=== PATIENT | male | born 1960 | race Caucasian/White ===

== ENCOUNTER 2018-12-02 08:40 | Emergency (ER) | payer BC ==
--- NOTE | 2018-12-02 09:31 | EDM.PDOC ---
ED HPI GENERAL MEDICAL PROBLEM - General Chief Complaint: Genitourinary Problem Stated Complaint: BACK SIDE PAIN Time Seen by Provider: 12/02/18 09:15 Source of Information: Reports: Patient History Limitations: Reports: No Limitations - History of Present Illness INITIAL COMMENTS - FREE TEXT/NARRATIVE: 58-year-old male presents with bilateral flank pain. He also feels he has decreased urinary output. It started last night after having [place] food, he had some upper abdominal tightness and discomfort which started at 3 AM. No nausea or vomiting. No dysuria. Over the next several hours the pain localized to his back bilaterally over the flank areas. No fever or chills. He is convinced that he has decreased urine output. Onset: Unknown/Unsure (Woke with pain at 3 AM) Location: Reports: Back (Bilateral flank pain) Quality: Reports: Ache Severity: Moderate Improves with: Reports: Other (Feels a little better when he is sitting up) Associated Symptoms: Denies: Confusion, Chest Pain, Cough, Diaphoresis, Fever/ Chills, Malaise, Nausea/Vomiting Bilateral Flank Pain Score (Numeric/FACES): 8 - Related Data Allergies Allergy/AdvReac Type Severity Reaction Status Date / Time No Known Allergies Allergy Verified 12/02/18 09:14 Home Meds: Home Meds Lisinopril 10 mg PO DAILY 12/02/18 [History] hydroCHLOROthiazide [Hydrochlorothiazide] 50 mg PO DAILY 12/02/18 [History] Past Medical History HEENT History: Reports: Impaired Vision Cardiovascular History: Reports: Hypertension Musculoskeletal History: Reports: Fracture - Past Surgical History GI Surgical History: Reports: Appendectomy Social & Family History - Caffeine Use Caffeine Use: Reports: Coffee, Energy Drinks, Soda - Recreational Drug Use Recreational Drug Use: No ED ROS GENERAL - Review of Systems Review Of Systems: See Below Constitutional: Denies: Fever, Chills HEENT: Reports: No Symptoms Respiratory: Denies: Shortness of Breath Cardiovascular: Denies: Chest Pain GI/Abdominal: Reports: Abdominal Pain. Denies: Nausea, Vomiting : Reports: Flank Pain (Bilateral), Other (Decreased output) Musculoskeletal: Reports: No Symptoms Skin: Reports: No Symptoms Neurological: Denies: Headache ED EXAM, GENERAL - Physical Exam Exam: See Below Exam Limited By: No Limitations General Appearance: Alert, No Apparent Distress Eye Exam: Bilateral Eye: Normal Inspection Head: Atraumatic Respiratory/Chest: No Respiratory Distress, Lungs Clear Cardiovascular: Regular Rate, Rhythm GI/Abdominal: Normal Bowel Sounds, Soft, Non-Tender Back Exam: No: CVA Tenderness (R), CVA Tenderness (L) Course - Vital Signs Last Recorded V/S: Last Vital Signs Temp 94.7 F L 12/02/18 09:15 Pulse 60 12/02/18 09:15 Resp 18 12/02/18 09:15 BP 151/56 H 12/02/18 09:15 Pulse Ox 96 12/02/18 09:15 - Orders/Labs/Meds Labs: Laboratory Tests 12/02/18 12/02/18 12/02/18 Range/Units 09:34 09:34 09:34 WBC 8.9 (4.5-11.0) K/uL RBC 4.80 (4.30-5.90) M/uL Hgb 14.8 (12.0-15.0) g/dL Hct 44.0 (40.0-54.0) % MCV 92 (80-98) fL MCH 31 (27-31) pg MCHC 34 (32-36) % Plt Count 235 (150-400) K/uL Neut % (Auto) 84 H (36-66) % Lymph % (Auto) 11 L (24-44) % [place] % (Auto) 4 (2-6) % Eos % (Auto) 0 L (2-4) % Baso % (Auto) 0 (0-1) % Sodium 140 (140-148) mmol/L Potassium 4.1 (3.6-5.2) mmol/L Chloride 105 (100-108) mmol/L Carbon Dioxide 28 (21-32) mmol/L Anion Gap 7.0 (5.0-14.0) mmol/L BUN 25 H (7-18) mg/dL Creatinine 1.1 (0.8-1.3) mg/dL Est Cr Clr Drug Dosing 77.42 mL/min Estimated GFR (MDRD) > 60 (>60) Glucose 125 H (74-106) mg/dL Calcium 9.3 (8.5-10.1) mg/dL Total Bilirubin 0.9 (0.2-1.0) mg/dL AST 19 (15-37) U/L ALT 26 (12-78) U/L Alkaline Phosphatase 66 (46-116) U/L Total Protein 7.3 (6.4-8.2) g/dL Albumin 3.3 L (3.4-5.0) g/dL Globulin 4.0 H (2.3-3.5) g/dL Albumin/Globulin Ratio 0.8 L (1.2-2.2) Lipase 47 L (73-393) U/L Urine Color Urine Appearance Urine pH (4.5-8.0) Ur Specific [place] (1.008-1.030) Urine Protein (NEGATIVE) mg/dL Urine Glucose (UA) (NEGATIVE) mg/dL Urine Ketones (NEGATIVE) mg/dL Urine Occult Blood (NEGATIVE) Urine Nitrite (NEGAITVE) Urine Bilirubin (NEGATIVE) Urine Urobilinogen (NORMAL) mg/dL Ur Leukocyte Esterase (NEGATIVE) Urine RBC (0-5) Urine WBC (0-5) Ur Epithelial Cells Amorphous Sediment Urine Bacteria Urine Mucus 12/02/18 Range/Units 10:24 WBC (4.5-11.0) K/uL RBC (4.30-5.90) M/uL Hgb (12.0-15.0) g/dL Hct (40.0-54.0) % MCV (80-98) fL MCH (27-31) pg MCHC (32-36) % Plt Count (150-400) K/uL Neut % (Auto) (36-66) % Lymph % (Auto) (24-44) % [place] % (Auto) (2-6) % Eos % (Auto) (2-4) % Baso % (Auto) (0-1) % Sodium (140-148) mmol/L Potassium (3.6-5.2) mmol/L Chloride (100-108) mmol/L Carbon Dioxide (21-32) mmol/L Anion Gap (5.0-14.0) mmol/L BUN (7-18) mg/dL Creatinine (0.8-1.3) mg/dL Est Cr Clr Drug Dosing mL/min Estimated GFR (MDRD) (>60) Glucose (74-106) mg/dL Calcium (8.5-10.1) mg/dL Total Bilirubin (0.2-1.0) mg/dL AST (15-37) U/L ALT (12-78) U/L Alkaline Phosphatase (46-116) U/L Total Protein (6.4-8.2) g/dL Albumin (3.4-5.0) g/dL Globulin (2.3-3.5) g/dL Albumin/Globulin Ratio (1.2-2.2) Lipase (73-393) U/L Urine Color Yellow Urine Appearance Cloudy Urine pH 5.0 (4.5-8.0) Ur Specific [place] 1.020 (1.008-1.030) Urine Protein Trace (NEGATIVE) mg/dL Urine Glucose (UA) Normal (NEGATIVE) mg/dL Urine Ketones 15 H (NEGATIVE) mg/dL Urine Occult Blood Trace (NEGATIVE) Urine Nitrite Negative (NEGAITVE) Urine Bilirubin Moderate (NEGATIVE) Urine Urobilinogen Normal (NORMAL) mg/dL Ur Leukocyte Esterase Negative (NEGATIVE) Urine RBC 0-5 (0-5) Urine WBC 0-5 (0-5) Ur Epithelial Cells Few Amorphous Sediment Rare Urine Bacteria Few Urine Mucus Few - Re-Assessments/Exams Free Text/Narrative Re-Assessment/Exam: 12/02/18 09:46 CBC, CMP, lipase and UA will be obtained as well as a CT of abdomen and pelvis without contrast. 12/02/18 10:41 CBC and CMP are normal including GFR and creatinine. Lipase was normal. UA was reassuring as well, CT showed significant cholelithiasis but no evidence of cholecystitis. Her reexamination of the patient reveals no abdominal pain or right upper quadrant tenderness. We discussed his symptoms, a possible relation to his gallbladder and the negative urology workup. He will treat symptomatically for the next several days and return if worsening such as fever or nausea and vomiting. If pain becomes a recurring issue, he can consider a cholecystectomy. Departure - Departure Time of Disposition: 10:55 Disposition: Home, Self-Care 01 Condition: Good Clinical Impression: Bilateral flank pain Cholelithiasis Qualifiers: Cholelithiasis location: gallbladder Cholecystitis presence: without cholecystitis Biliary obstruction: without biliary obstruction Qualified Code(s) : K80.20 - Calculus of gallbladder without cholecystitis without obstruction - Discharge Information Instructions: Cholelithiasis Referrals: Abelino Gill MD [Primary Care Provider] - Forms: ED Department Discharge Care Plan Goals: Ibuprofen or naproxen for the next several days for pain should be beneficial. Return anytime if worsening such as fever, increased pain or nausea and vomiting. Also consider rechecking in 2-3 days if not improving satisfactorily. If pain becomes recurrent especially related to eating, a surgical consult to discuss a possible cholecystectomy would be reasonable.
--- NOTE | 2018-12-02 10:13 | CRLCT ---
INDICATION: Bilateral flank pain TECHNIQUE: CT abdomen and pelvis without contrast. COMPARISON: None. FINDINGS: Lower chest: Unremarkable. Liver: Normal in size and attenuation. No masses. Gallbladder and bile ducts: Numerous small stones are in the gallbladder which is normal in caliber. No CT evidence of inflammation and no biliary dilatation. Pancreas: Unremarkable. No mass or inflammation. Spleen: Normal in size. No masses. Adrenal glands: Normal in size. No nodules. Kidneys: Normal in size. No masses, stones, or hydronephrosis. Few small cortical cysts are present. No perinephric edema. GI tract: Unremarkable. Normal in caliber. No sign of mass or inflammation. Vasculature: Unremarkable. Lymph nodes: No lymphadenopathy. Abdominal wall/Omentum/Peritoneum: Unremarkable. No sign of mass or infiltration. No free air or significant free fluid. Pelvis: Unremarkable. No pelvic masses. Bones: Unremarkable for age. IMPRESSION: 1. Cholelithiasis with numerous small gallbladder stones. No CT evidence of cholecystitis. Ultrasound evaluation should be considered if there is clinical concern for cholecystitis. 2. No renal stones and no hydronephrosis. 3. No other findings to explain flank pain. Dictated by Sky Loomis MD @ 12/02/2018 10:11:35 AM Please note that all CT scans at this facility use dose modulation, iterative reconstruction, and/or weight-based dosing when appropriate to reduce radiation dose to as low as reasonably achievable. Dictated by: Sky Loomis MD @ 12/02/2018 10:11:41 (Electronically Signed)
== END 2018-12-02 10:55 | disposition home or self-care (01) ==
LOC: JP.ED 08:40
DX: K80.20 Calculus of gallbladder without cholecystitis without obstruction (principal); I10 Essential (primary) hypertension; Z79.899 Other long term (current) drug therapy
CPT/HCPCS: 36415; 74176; 80053; 81001; 83690; 85025; 99284-25

== ENCOUNTER 2024-01-21 07:55 | Day surgery (SDC) | payer BC, OTHER ==
[~2024-01-21 07:55] MED LIST: Bupivacaine 0.5% 50 ML MDV ONE; Lidocaine 1% with EPINEPHrine 1:100,000 50 ML MDV ONE
[2024-01-21] MEDS ORDERED: Sodium Chloride 0.9% 1,000 ML IV SCH (08:30)
[2024-01-21] MEDS ORDERED: ceFAZolin 2 GM in Premix Bag 1 BAG IV ONE (09:10)
== END 2024-01-21 08:29 | disposition home or self-care (01) ==
LOC: JP.SDS 07:55
PROVIDERS: ATTEND Surgery
DX: D17.9 Benign lipomatous neoplasm, unspecified (principal); I48.19 Other persistent atrial fibrillation
CPT/HCPCS: J0665

== ENCOUNTER 2024-03-25 07:42 | Day surgery (SDC) | payer OTHER ==
[~2024-03-25 07:42] MED LIST changes: -Bupivacaine 0.5% 50 ML MDV ONE; -Lidocaine 1% with EPINEPHrine 1:100,000 50 ML MDV ONE; +Midazolam 1 MG/ML 2 ML SDV ONE; +Propofol 200 MG/20 ML SDV ONE; +fentaNYL 100 MCG/2 ML SDV ONE
[2024-03-25] MEDS: Sodium Chloride 0.9% 1,000 ML IV SCH (08:25)
[2024-03-25] MEDS ORDERED: Propofol 200 MG/20 ML SDV ONE (09:43)
[2024-03-25] MEDS: ceFAZolin 2 GM in Premix Bag 1 BAG IV ONE (09:58)
[2024-03-25] MEDS: Bupivacaine 0.5% 50 ML MDV ONE (12:44)
[2024-03-25] MEDS: Lidocaine 1% with EPINEPHrine 1:100,000 50 ML MDV ONE (12:45)
== END 2024-03-25 11:15 | disposition home or self-care (01) ==
LOC: JP.SDS 07:42
PROVIDERS: ATTEND Surgery
DX: D48.113 Desmoid tumor of abdominal wall (principal); I10 Essential (primary) hypertension; I48.91 Unspecified atrial fibrillation; E66.01 Morbid (severe) obesity due to excess calories; Z79.01 Long term (current) use of anticoagulants; Z79.899 Other long term (current) drug therapy
CPT/HCPCS: 00400; 22903; 88307; 88341; 88342; 88360; J0665; J0690; J2250; J2704; J3010; J7030